=== PATIENT | female | born 1960 | race Caucasian/White ===

== ENCOUNTER 2020-09-17 11:23 | Emergency (ER) | payer MEDICARE ==
[~2020-09-17 11:23] MED LIST: COZAAR100 MG PO; CYMBALTA 30MG C30 MG PO; FLEXERIL10 MG PO; HCTZ25 MG PO; INDERAL20 MG PO; KLONOPIN0.5 MG PO; NEURONTIN400 MG PO; NORCO 5-325 TA1 EACH PO; NORVASC5 MG PO; PEPCID AC20 MG PO; PHENERGAN25 M1 PO; PROTONIX 40MG T40 MG PO; TRAZODONE 100M100 MG PO; VOLTAREN **OUT75 MG PO; WELLBUTRIN SR150 MG PO
[2020-09-17] MEDS ORDERED: NAPROXEN500 MG PO (12:52)
[2020-09-17] MEDS ORDERED: NORCO 5-325 TA1 EACH PO (12:52)
== END 2020-09-17 14:04 | disposition home or self-care (01) ==
LOC: FER 11:23
DX: M25.562 Pain in left knee (principal); R22.42 Localized swelling, mass and lump, left lower limb; R26.2 Difficulty in walking, not elsewhere classified; F17.210 Nicotine dependence, cigarettes, uncomplicated; Z85.3 Personal history of malignant neoplasm of breast; Z90.10 Acquired absence of unspecified breast and nipple
CPT/HCPCS: 73560; 93971